=== PATIENT | female | born 1975 | race Caucasian/White ===

== ENCOUNTER 2021-10-30 13:47 | Emergency (ER) | payer SELFPAY ==
[~2021-10-30] VITALS: Ht 157.5 cm; Wt 73.0 kg
[2021-10-30 13:59] VITALS: BP 121/47
[2021-10-30 16:07] LABS: BASOPHILS % 0.3 % (0.0-2.0); EOSINOPHILS % 0.9 % (0.0-5.0); HEMATOCRIT. 34.8 % (36.0-48.0); HEMOGLOBIN. 11.2 g/dL (12.0-16.0); LYMPHOCYTES % 30.3 % (20.0-50.0); MEAN CORPUSCULAR HEMOGLOBIN 25.3 pg (28.0-32.0); MEAN CORPUSCULAR VOLUME 78.9 fL (81.0-99.0); MEAN PLATELET VOLUME 8.1 fl (7.4-10.4); MONOCYTES % 7.2 % (2.0-8.0); NEUTROPHILS % 61.3 % (40.0-76.0); PLATELET 364 x1000/uL (130-400); RED BLOOD CELL COUNT 4.41 mill/uL (4.2-5.4); RED CELL DISTRIBUTION WIDTH 15.2 % (11.6-14.6)
[2021-10-30] MEDS: ACETAMINOPHEN 325MG TABLET PO STA (16:09)
[2021-10-30 16:19] LABS: CLARITY URINE CLOUDY (CLEAR); COLOR URINE DARK YELLOW (YELLOW); KETONES URINE TRACE (NEGATIVE); LEUKOCYTE ESTERASE URINE NEGATIVE (NEGATIVE); NITRITE URINE NEGATIVE (NEGATIVE); OCCULT BLOOD URINE TRACE (NEGATIVE); PH URINE 5.5 (4.5-8.0); PROTEIN URINE TRACE (NEGATIVE)
[2021-10-30 16:25] LABS: CHLORIDE 105 mEq/L (98-107)
[2021-10-30] MEDS ORDERED: MECL-159 PO (17:23)
[2021-10-30] MEDS ORDERED: NAPR-681 PO (17:23)
== END 2021-10-30 18:01 | disposition home or self-care (01) ==
LOC: ER 13:47
DX: R51.9 Headache, unspecified (principal); R42 Dizziness and giddiness; W01.0XXA Fall on same level from slipping, tripping and stumbling without subsequent striking against object, initial encounter; Y93.89 Activity, other specified; Y92.89 Other specified places as the place of occurrence of the external cause; Y99.8 Other external cause status
CPT/HCPCS: 36415; 80053; 81003; 85025; 93005; 99285